=== PATIENT | female | born 1940 | race Caucasian/White ===

== ENCOUNTER 2022-04-15 06:54 | Day surgery (SDC) | payer MEDICARE, BC ==
[2022-04-15] MEDS ORDERED: Propofol 200 MG/20 ML SDV ONE (07:09)
[2022-04-15] MEDS ORDERED: fentaNYL 50 MCG/ML SDV ONE (07:09)
[2022-04-15] MEDS ORDERED: Lactated Ringers 1,000 ML IV SCH (08:00)
== END 2022-04-15 10:32 | disposition home or self-care (01) ==
LOC: JP.SDS 06:54
PROVIDERS: ATTEND Student in an Organized Health Care Education/Training Program
DX: K29.50 Unspecified chronic gastritis without bleeding (principal); K57.32 Diverticulitis of large intestine without perforation or abscess without bleeding; K62.3 Rectal prolapse; I10 Essential (primary) hypertension; G47.33 Obstructive sleep apnea (adult) (pediatric); F32.A Depression, unspecified; D50.9 Iron deficiency anemia, unspecified; Z79.899 Other long term (current) drug therapy; Z88.5 Allergy status to narcotic agent; Z88.6 Allergy status to analgesic agent
CPT/HCPCS: 43239; 45378; J2704; J3010; J7120; 88305; 88341; 88342; 88364; 88365

== ENCOUNTER 2024-04-13 13:26 | Inpatient (IN) | payer MEDICARE, BC ==
[2024-04-13 14:47] LABS: BASOPHILS ABSOLUTE AUTO 0.06 K/uL (0.00-0.10); BASOPHILS PERCENT AUTO 0.6 % (0.1-1.3); EOSINOPHILS ABSOLUTE AUTO 0.37 K/uL (0.00-0.40); HEMOGLOBIN 7.1 g/dL (11.2-15.5); IMMATURE GRAN ABSOLUTE AUTO 0.13 K/uL (0.00-0.23); IMMATURE GRAN PERCENT AUTO 1.4 % (0.0-0.7); LYMPHOCYTES ABSOLUTE AUTO 1.11 K/uL (0.8-3.3); MEAN CORPUSCULAR HGB CONC 30.9 g/dL (31.6-35.5); MEAN CORPUSCULAR VOLUME 90.6 fL (81.4-99.0); MONOCYTES ABSOLUTE AUTO 0.77 K/uL (0.20-0.90); MONOCYTES PERCENT AUTO 8.3 % (3.3-12.6); NEUTROPHILS ABSOLUTE AUTO 6.82 K/uL (1.0-7.6); NEUTROPHILS PERCENT AUTO 73.7 % (40.0-78.1); PLATELET COUNT,PLT 233 K/uL (130-375); RED BLOOD CELL COUNT 2.54 M/uL (3.77-5.24); WHITE BLOOD CELL COUNT,WBC 9.3 K/uL (3.2-11.0)
[2024-04-13 15:07] LABS: A/G RATIO 0.9 (1.2-2.2); ALANINE AMINOTRANSFERASE,ALT 30 U/L (12-78); ALBUMIN 3.1 g/dL (3.4-5.0); ALKALINE PHOSPHATASE 86 U/L (46-116); ANION GAP 10.7 mmol/L (5.0-14.0); ASPARTATE AMNIOTRANSFERASE,AST 22 U/L (15-37); BILIRUBIN TOTAL 0.2 mg/dL (0.2-1.0); BLOOD UREA NITROGEN,BUN 18 mg/dL (7-18); CALCIUM 8.6 mg/dL (8.5-10.1); CARBON DIOXIDE,CO2 28 mmol/L (21-32); CHLORIDE,CL 102 mmol/L (100-108); CREATININE 1.1 mg/dL (0.6-1.0); ESTIMATED GFR 50 mL/min (>60); GLUCOSE RANDOM 124 mg/dL (74-106); POTASSIUM,K 3.7 mmol/L (3.6-5.2); PROTEIN TOTAL,TP 6.6 g/dL (6.4-8.2); SODIUM,NA 141 mmol/L (140-148)
[2024-04-13] MEDS: Sodium Chloride 0.9% 1,000 ML IV STA (17:06)
[2024-04-13] MEDS: diphenhydrAMINE 50 MG/ML SDV IVPUSH ONE (17:07)
[2024-04-13] MEDS: Acetaminophen 1,000 MG in Premix Bag 1 BAG IV ONE (17:07)
[2024-04-13] MEDS: Polyethylene Glycol 3350 Powder 238 GM Bot PO ONE (17:56)
[2024-04-13] MEDS: Bisacodyl 5 MG Tab PO ONE ×2 (17:57→21:17)
[2024-04-13] MEDS: Pantoprazole 40 MG Vial IVPUSH SCH (18:26)
[2024-04-13] MEDS ORDERED: Sodium Chloride 0.9% 10 ML Syringe FLUSH PRN (19:21)
[2024-04-13] MEDS ORDERED: oxyCODONE 5 MG Tab PO PRN (19:21)
[2024-04-13] MEDS ORDERED: Ondansetron 4 MG/2 ML SDV IV PRN (19:21)
[2024-04-13] MEDS: Pravastatin 20 MG Tab PO SCH (21:17)
[2024-04-13] MEDS: Ferrous Sulfate 325 MG Tab PO SCH (21:17)
[2024-04-13] MEDS: traZODone 50 MG Tab PO SCH (21:17)
[2024-04-14] MEDS: Sodium Chloride 0.9% 1,000 ML IV SCH (00:12)
[2024-04-14 05:43] LABS: HEMATOCRIT 26.5 % (34.3-46.0); HEMOGLOBIN 8.5 g/dL (11.2-15.5); MEAN CORPUSCULAR HEMOGLOBIN 28.6 pg (31.6-35.5); MEAN CORPUSCULAR HGB CONC 32.1 g/dL (31.6-35.5); MEAN CORPUSCULAR VOLUME 89.2 fL (81.4-99.0); RED BLOOD CELL COUNT 2.97 M/uL (3.77-5.24); WHITE BLOOD CELL COUNT,WBC 8.2 K/uL (3.2-11.0)
[2024-04-14 06:13] LABS: ANION GAP 9.6 mmol/L (5.0-14.0); CALCIUM 7.7 mg/dL (8.5-10.1); CREATININE 1.1 mg/dL (0.6-1.0); EST CRCL DRUG DOSING (CG) 30.27 mL/min; MAGNESIUM 1.6 mg/dL (1.8-2.4); POTASSIUM,K 3.6 mmol/L (3.6-5.2)
[2024-04-14] MEDS ORDERED: Propofol 200 MG/20 ML SDV ONE (06:55)
[2024-04-14] MEDS ORDERED: fentaNYL 50 MCG/ML SDV ONE (06:55)
[2024-04-14] MEDS ORDERED: Ondansetron 4 MG/2 ML SDV ONE (07:40)
[2024-04-14] MEDS ORDERED: Lactated Ringers 1,000 ML ONE (07:44)
[2024-04-14] MEDS ORDERED: Pravastatin 20 MG Tab PO SCH (09:00)
[2024-04-14] MEDS ORDERED: traZODone 50 MG Tab PO SCH (09:00)
[2024-04-14] MEDS: Levothyroxine 25 MCG Tab PO SCH (09:50)
[2024-04-14] MEDS: Citalopram 20 MG Tab PO SCH (09:56)
[2024-04-14] MEDS: Potassium Chloride 20 MEQ Tab.ER PO ONE (09:56)
[2024-04-14] MEDS: Magnesium Oxide 400 MG Tab PO SCH (09:57)
[2024-04-14] MEDS: Magnesium Sulf/Wat 2 GM/50 mL 2 GM in Premix Bag 1 BAG IV SCH (10:28)
[2024-04-14] MEDS: Acetaminophen 325 MG Tab PO PRN (19:22)
[2024-04-15 03:15] LABS: HEMATOCRIT 25.8 % (34.3-46.0); HEMOGLOBIN 8.2 g/dL (11.2-15.5); MEAN CORPUSCULAR HEMOGLOBIN 28.8 pg (31.6-35.5); MEAN CORPUSCULAR HGB CONC 31.8 g/dL (31.6-35.5); MEAN CORPUSCULAR VOLUME 90.5 fL (81.4-99.0); RED BLOOD CELL COUNT 2.85 M/uL (3.77-5.24); WHITE BLOOD CELL COUNT,WBC 8.1 K/uL (3.2-11.0)
[2024-04-15 03:34] LABS: ANION GAP 7.1 mmol/L (5.0-14.0); CALCIUM 7.6 mg/dL (8.5-10.1); CREATININE 1.1 mg/dL (0.6-1.0); EST CRCL DRUG DOSING (CG) 30.27 mL/min; MAGNESIUM 1.7 mg/dL (1.8-2.4)
[2024-04-15 03:59] LABS: IRON,FE 86 ug/dL (50-170); PERCENT FE SATURATION 30 % (20-55); TOTAL IRON BINDING CAPACITY 282 ug/dl (250-450)
[2024-04-15] MEDS: Magnesium Sulf/Wat 2 GM/50 mL 2 GM in Premix Bag 1 BAG IV SCH (09:50)
[2024-04-15] MEDS: Pantoprazole 40 MG Vial IVPUSH SCH (09:50)
[2024-04-15] MEDS: Pantoprazole 40 MG Tab.CR PO SCH (21:05)
[2024-04-16 06:19] LABS: ANION GAP 6.3 mmol/L (5.0-14.0); CALCIUM 8.2 mg/dL (8.5-10.1); CREATININE 1.1 mg/dL (0.6-1.0); EST CRCL DRUG DOSING (CG) 30.27 mL/min; POTASSIUM,K 4.1 mmol/L (3.6-5.2)
== END 2024-04-17 12:45 | disposition home or self-care (01) | DRG 378 ==
LOC: JP.ED 13:26 → JP.MS 17:06
PROVIDERS: ADMIT Hospitalist; ATTEND Hospitalist
PROC: 30233N1 Transfusion of Nonautologous Red Blood Cells into Peripheral Vein, Percutaneous Approach (ICD-10-PCS; 2024-04-13)
PROC: 0DJD8ZZ Inspection of Lower Intestinal Tract, Via Natural or Artificial Opening Endoscopic (ICD-10-PCS; principal; 2024-04-14 07:30)
DX: K57.31 Diverticulosis of large intestine without perforation or abscess with bleeding (principal); K92.2 Gastrointestinal hemorrhage, unspecified; H26.9 Unspecified cataract; H54.7 Unspecified visual loss; K21.9 Gastro-esophageal reflux disease without esophagitis; G47.30 Sleep apnea, unspecified; D62 Acute posthemorrhagic anemia; I10 Essential (primary) hypertension; K63.4 Enteroptosis; K64.4 Residual hemorrhoidal skin tags; M19.90 Unspecified osteoarthritis, unspecified site; E78.00 Pure hypercholesterolemia, unspecified; F32.A Depression, unspecified; E03.9 Hypothyroidism, unspecified; E66.9 Obesity, unspecified; Z98.49 Cataract extraction status, unspecified eye; Z90.49 Acquired absence of other specified parts of digestive tract; Z90.710 Acquired absence of both cervix and uterus; Z79.02 Long term (current) use of antithrombotics/antiplatelets; Z79.899 Other long term (current) drug therapy; Z98.890 Other specified postprocedural states; Z79.890 Hormone replacement therapy; Z88.5 Allergy status to narcotic agent; Z88.6 Allergy status to analgesic agent; Z68.35 Body mass index [BMI] 35.0-35.9, adult
CPT/HCPCS: 36415; 36430; 80048; 80053; 83550; 83735; 84443; 85018; 85025; 85027; 86850; 86900; 86901; 86920; 86922; 99223; 99232; 99238; 99285; A9270-GY; J2405; J2470; J2704; J3010; J3475; J7120; P9016

== ENCOUNTER 2024-08-08 10:49 | Emergency (ER) | payer MEDICARE, BC | END 2024-08-08 11:42 | disposition home or self-care (01) | LOC: JP.ED 10:49 | DX: R21 Rash and other nonspecific skin eruption (principal); Z88.5 Allergy status to narcotic agent; Z79.899 Other long term (current) drug therapy | CPT/HCPCS: 99282 ==